=== PATIENT | female | born 1970 | race Caucasian/White ===

== ENCOUNTER 2022-10-09 06:55 | Emergency (ER) | payer MEDICAID ==
[~2022-10-09] VITALS: Ht 167.6 cm; Wt 70.0 kg
[2022-10-09] MEDS ORDERED: FAMOTIDINE 20MG/2ML VIAL IV ONE (07:30)
[2022-10-09] MEDS ORDERED: VISCOUS LIDOCAINE 2% 15 ML UDC PO ONE (07:30)
[2022-10-09] MEDS ORDERED: MAGNESIUM/ALUMINUM HYDROXIDE/SIMETHICONE 30ML UDC PO ONE (07:30)
[2022-10-09 10:01] LABS: CLARITY URINE CLEAR (CLEAR); COLOR URINE YELLOW (YELLOW); KETONES URINE NEGATIVE (NEGATIVE); LEUKOCYTE ESTERASE URINE NEGATIVE (NEGATIVE); NITRITE URINE NEGATIVE (NEGATIVE); OCCULT BLOOD URINE TRACE (NEGATIVE); PH URINE 6.5 (4.5-8.0); PROTEIN URINE NEGATIVE (NEGATIVE); SPECIFIC GRAVITY URINE 1.006 (1.005-1.030); UROBILINOGEN URINE 0.2 E.U./dL (0.2-1.0)
[2022-10-09 10:23] LABS: BASOPHILS % 0.2 % (0.0-2.0); EOSINOPHILS % 0.3 % (0.0-5.0); HEMATOCRIT. 42.3 % (36.0-48.0); HEMOGLOBIN. 14.8 g/dL (12.0-16.0); LYMPHOCYTES % 23.5 % (20.0-50.0); MEAN CORPUSCULAR HEMOGLOBIN 32.1 pg (28.0-32.0); MEAN CORPUSCULAR VOLUME 91.5 fL (81.0-99.0); MEAN PLATELET VOLUME 9.4 fl (7.4-10.4); PLATELET 252 x1000/uL (130-400); RED BLOOD CELL COUNT 4.62 mill/uL (4.2-5.4); RED CELL DISTRIBUTION WIDTH 13.1 % (11.6-14.6)
[2022-10-09 10:34] LABS: CHLORIDE 105 mEq/L (98-107)
[2022-10-09] MEDS ORDERED: IBUP-2028 MT (10:53)
[2022-10-09] MEDS ORDERED: PROT40 MT (10:59)
[2022-10-09] MEDS ORDERED: POTASSIUM CHLORIDE 20MEQ TABLET SR PO ONE (11:00)
[2022-10-09 11:26] VITALS: BP 137/87
== END 2022-10-09 11:33 | disposition home or self-care (01) ==
LOC: ER 06:55
DX: K21.9 Gastro-esophageal reflux disease without esophagitis (principal); K76.0 Fatty (change of) liver, not elsewhere classified; E87.6 Hypokalemia; R03.0 Elevated blood-pressure reading, without diagnosis of hypertension; R94.31 Abnormal electrocardiogram [ECG] [EKG]
CPT/HCPCS: 36415; 71045; 76705; 80053; 81003; 83690; 83880; 84484; 85025; 93005; 99285; J3490

== ENCOUNTER 2022-10-11 07:39 | Emergency (ER) | payer MEDICAID, OTHER ==
[~2022-10-11] VITALS: Ht 157.5 cm; Wt 64.0 kg
[~2022-10-11 07:39] MED LIST: IBUP-2028 MT; PROT40 MT
[2022-10-11 07:57] VITALS: BP 154/93
[2022-10-11] MEDS ORDERED: ONDANSETRON 4MG ODT PO ONE (09:00)
[2022-10-11] MEDS ORDERED: FAMOTIDINE 20MG TABLET PO ONE (09:00)
== END 2022-10-11 09:19 | disposition left against medical advice (07) ==
LOC: ER 07:49
DX: F41.9 Anxiety disorder, unspecified (principal); R11.2 Nausea with vomiting, unspecified; K21.9 Gastro-esophageal reflux disease without esophagitis
CPT/HCPCS: 99281

== ENCOUNTER 2022-10-18 05:49 | Emergency (ER) | payer MEDICAID ==
[~2022-10-18] VITALS: Ht 162.6 cm; Wt 80.0 kg
[2022-10-18 06:08] VITALS: BP 149/94
[2022-10-18 06:41] LABS: CHLORIDE 104 mEq/L (98-107)
[2022-10-18 07:07] LABS: ETHANOL BLOOD < 10 mg/dL
[2022-10-18 07:09] LABS: BASOPHILS % 0.2 % (0.0-2.0); EOSINOPHILS % 0.5 % (0.0-5.0); HEMATOCRIT. 41.1 % (36.0-48.0); HEMOGLOBIN. 14.3 g/dL (12.0-16.0); LYMPHOCYTES % 29.6 % (20.0-50.0); MEAN CORPUSCULAR VOLUME 91.7 fL (81.0-99.0); MEAN PLATELET VOLUME 9.7 fl (7.4-10.4); NEUTROPHILS % 62.7 % (40.0-76.0); PLATELET 270 x1000/uL (130-400); RED BLOOD CELL COUNT 4.48 mill/uL (4.2-5.4); RED CELL DISTRIBUTION WIDTH 12.7 % (11.6-14.6)
== END 2022-10-18 10:44 | disposition left against medical advice (07) ==
LOC: ER 05:49
DX: F41.1 Generalized anxiety disorder (principal); F43.0 Acute stress reaction; Z63.79 Other stressful life events affecting family and household
CPT/HCPCS: 36415; 80053; 80307; 80320; 80329; 85025; 99283; G0480